=== PATIENT | female | born 1985 | race Two or more races ===

== ENCOUNTER 2022-04-07 13:07 | Observation (INO) | payer MEDICAID ==
[~2022-04-07] VITALS: Ht 162.6 cm; Wt 73.5 kg
[2022-04-07] MEDS ORDERED: LACTATED RINGER'S 1,000 ML IV ONE (15:00)
== END 2022-04-07 15:20 | disposition home or self-care (01) ==
LOC: LDRP 13:07 → UNDOADMOB 13:07 → LDRP 13:43 → UNDODISOB 15:20
PROVIDERS: ADMIT Obstetrics & Gynecology; ATTEND Obstetrics & Gynecology
DX: O60.03 Preterm labor without delivery, third trimester (principal); Z3A.28 28 weeks gestation of pregnancy
CPT/HCPCS: 59025; 81002; 94760; G0378

== ENCOUNTER 2022-04-16 09:52 | Observation (INO) | payer MEDICAID ==
[2022-04-16] MEDS ORDERED: NIF10C PO (11:25)
[2022-04-16] MEDS ORDERED: PREN-96 PO (11:27)
[2022-04-16] MEDS ORDERED: URSO300C9 PO (11:28)
== END 2022-04-16 12:05 | disposition home or self-care (01) ==
LOC: LDRP 09:52 → UNDOADMOB 09:52 → LDRP 11:05 → UNDODISOB 12:05
PROVIDERS: ADMIT Obstetrics & Gynecology; ATTEND Obstetrics & Gynecology
DX: O26.613 Liver and biliary tract disorders in pregnancy, third trimester (principal); K83.1 Obstruction of bile duct; Z3A.29 29 weeks gestation of pregnancy
CPT/HCPCS: 59025; 76818; 81002; 94760; G0378

== ENCOUNTER 2022-04-23 08:04 | Observation (INO) | payer MEDICAID ==
[~2022-04-23] VITALS: Ht 160 cm; Wt 113.9 kg
[~2022-04-23 08:04] MED LIST: NIF10C PO; PREN-96 PO; URSO300C9 PO
== END 2022-04-23 11:28 | disposition home or self-care (01) ==
LOC: LDRP 08:04 → UNDOADMOB 08:10 → LDRP 08:10 → UNDODISOB 11:28
PROVIDERS: ADMIT Obstetrics & Gynecology; ATTEND Obstetrics & Gynecology
DX: O24.419 Gestational diabetes mellitus in pregnancy, unspecified control (principal); O26.613 Liver and biliary tract disorders in pregnancy, third trimester; K83.1 Obstruction of bile duct; O26.893 Other specified pregnancy related conditions, third trimester; N89.8 Other specified noninflammatory disorders of vagina; H53.8 Other visual disturbances; O99.891 Other specified diseases and conditions complicating pregnancy; M54.9 Dorsalgia, unspecified; Z3A.30 30 weeks gestation of pregnancy
CPT/HCPCS: 59025; 76818; 81002; 84112; 94760; G0378; Q0114

== ENCOUNTER 2022-04-27 08:05 | Observation (INO) | payer MEDICAID | END 2022-04-27 11:18 | disposition home or self-care (01) | LOC: UNDOADMOB 09:37 → LDRP 09:37 | PROVIDERS: ADMIT Obstetrics & Gynecology Obstetrics; ATTEND Obstetrics & Gynecology Obstetrics | DX: O26.613 Liver and biliary tract disorders in pregnancy, third trimester (principal); K83.1 Obstruction of bile duct; Z3A.31 31 weeks gestation of pregnancy | CPT/HCPCS: 59025; 76818; 81002; 94760; G0378 ==

== ENCOUNTER 2022-05-01 08:14 | Observation (INO) | payer MEDICAID ==
[2022-05-01] MEDS ORDERED: PROG1CAP PO (09:23)
== END 2022-05-01 09:42 | disposition home or self-care (01) ==
LOC: UNDOADMOB 08:14 → LDRP 08:14
PROVIDERS: ADMIT Obstetrics & Gynecology; ATTEND Obstetrics & Gynecology
DX: O26.613 Liver and biliary tract disorders in pregnancy, third trimester (principal); K83.1 Obstruction of bile duct; O26.893 Other specified pregnancy related conditions, third trimester; R51.9 Headache, unspecified; Z3A.31 31 weeks gestation of pregnancy
CPT/HCPCS: 59025; 76818; 81002; 94760; G0378

== ENCOUNTER 2022-05-04 08:38 | Observation (INO) | payer MEDICAID | END 2022-05-04 11:26 | disposition home or self-care (01) | LOC: LDRP 09:32 → UNDOADMOB 09:34 → LDRP 09:34 → UNDODISOB 11:26 | PROVIDERS: ADMIT Obstetrics & Gynecology Obstetrics; ATTEND Obstetrics & Gynecology Obstetrics | DX: O26.613 Liver and biliary tract disorders in pregnancy, third trimester (principal); K83.1 Obstruction of bile duct; O60.03 Preterm labor without delivery, third trimester; Z3A.32 32 weeks gestation of pregnancy | CPT/HCPCS: 59025; 76818; 81002; G0378 ==

== ENCOUNTER 2022-05-08 08:00 | Observation (INO) | payer MEDICAID | END 2022-05-08 09:35 | disposition home or self-care (01) | LOC: UNDOADMOB 08:00 → LDRP 08:00 → UNDODISOB 09:35 | PROVIDERS: ADMIT Obstetrics & Gynecology; ATTEND Obstetrics & Gynecology | DX: O60.03 Preterm labor without delivery, third trimester (principal); O26.613 Liver and biliary tract disorders in pregnancy, third trimester; K83.1 Obstruction of bile duct; Z3A.33 33 weeks gestation of pregnancy | CPT/HCPCS: 59025; 76818; 81002; 94760; G0378 ==

== ENCOUNTER 2022-05-13 10:11 | Observation (INO) | payer MEDICAID ==
[~2022-05-13] VITALS: Ht 160 cm; Wt 117.9 kg
[2022-05-13] MEDS ORDERED: TERBUTALINE SULFATE 1 MG/ML 1ML VIAL SC SCH (16:15)
== END 2022-05-13 17:03 | disposition home or self-care (01) ==
LOC: UNDOADMOB 14:45 → LDRP 14:45
PROVIDERS: ADMIT Obstetrics & Gynecology; ATTEND Obstetrics & Gynecology
DX: O26.613 Liver and biliary tract disorders in pregnancy, third trimester (principal); K83.1 Obstruction of bile duct; O60.03 Preterm labor without delivery, third trimester; Z3A.33 33 weeks gestation of pregnancy
CPT/HCPCS: 59025; 76818; 96372; G0378; J3105

== ENCOUNTER 2022-05-15 08:37 | Observation (INO) | payer MEDICAID ==
[2022-05-25] MEDS ORDERED: HYDR250I6 IM (09:54)
== END 2022-05-25 10:15 | disposition home or self-care (01) ==
LOC: UNDOADMOB 05-25 08:05 → LDRP 05-25 08:05 → UNDODISOB 05-25 10:15
PROVIDERS: ADMIT Obstetrics & Gynecology Obstetrics; ATTEND Obstetrics & Gynecology Obstetrics
DX: O26.613 Liver and biliary tract disorders in pregnancy, third trimester (principal); K83.1 Obstruction of bile duct; Z3A.35 35 weeks gestation of pregnancy
CPT/HCPCS: 76818; G0378; 59025; 81002; 94760

== ENCOUNTER 2022-05-18 08:54 | Observation (INO) | payer MEDICAID | END 2022-05-18 10:00 | disposition home or self-care (01) | LOC: LDRP 08:54 → UNDOADMOB 08:57 → LDRP 08:57 → UNDODISOB 10:00 | PROVIDERS: ADMIT Obstetrics & Gynecology Obstetrics; ATTEND Obstetrics & Gynecology Obstetrics | DX: O26.613 Liver and biliary tract disorders in pregnancy, third trimester (principal); K83.1 Obstruction of bile duct; Z3A.34 34 weeks gestation of pregnancy | CPT/HCPCS: 59025; 76818; 81002; 94760; G0378 ==

== ENCOUNTER 2022-05-22 08:03 | Observation (INO) | payer MEDICAID | END 2022-05-22 09:50 | disposition home or self-care (01) | LOC: LDRP 08:03 → UNDOADMOB 08:03 → LDRP 08:28 | PROVIDERS: ADMIT Obstetrics & Gynecology; ATTEND Obstetrics & Gynecology | DX: O60.03 Preterm labor without delivery, third trimester (principal); O26.613 Liver and biliary tract disorders in pregnancy, third trimester; K83.1 Obstruction of bile duct; O26.893 Other specified pregnancy related conditions, third trimester; H53.8 Other visual disturbances; Z3A.34 34 weeks gestation of pregnancy | CPT/HCPCS: 59025; 76818; 81002; 94760; G0378 ==

== ENCOUNTER 2022-05-29 07:55 | Observation (INO) | payer MEDICAID ==
[~2022-05-29 07:55] MED LIST changes: +HYDR250I6 IM
== END 2022-05-29 09:50 | disposition home or self-care (01) ==
LOC: LDRP 07:55
PROVIDERS: ADMIT Obstetrics & Gynecology; ATTEND Obstetrics & Gynecology
DX: O60.03 Preterm labor without delivery, third trimester (principal); O24.419 Gestational diabetes mellitus in pregnancy, unspecified control; O26.613 Liver and biliary tract disorders in pregnancy, third trimester; K83.1 Obstruction of bile duct; Z3A.35 35 weeks gestation of pregnancy
CPT/HCPCS: 59025; 76818; 81002; 82948; 82962; G0378

== ENCOUNTER 2022-06-01 08:35 | Observation (INO) | payer MEDICAID | END 2022-06-01 11:41 | disposition home or self-care (01) | LOC: LDRP 09:16 → UNDOADMOB 09:16 → LDRP 09:44 → UNDODISOB 11:41 | PROVIDERS: ADMIT Obstetrics & Gynecology Obstetrics; ATTEND Obstetrics & Gynecology Obstetrics | DX: O26.613 Liver and biliary tract disorders in pregnancy, third trimester (principal); K83.1 Obstruction of bile duct; O62.9 Abnormality of forces of labor, unspecified; O24.419 Gestational diabetes mellitus in pregnancy, unspecified control; Z3A.36 36 weeks gestation of pregnancy | CPT/HCPCS: 59025; 76818; 81002; 82948; 82962; G0378 ==